=== PATIENT | male | born 1950 | race African-American/Black ===

== ENCOUNTER 2017-09-19 18:02 | Emergency (ER) | payer MEDICARE, OTHER ==
[~2017-09-19] VITALS: Ht 106.7 cm; Wt 63.6 kg
[~2017-09-19 18:02] MED LIST: CIPR-278 PO; HYD50 PO; HYDR25TA PO; LISI-661 PO; METH10OR11 PO
[2017-09-19 18:43] VITALS: BP 161/82
[2017-09-19] MEDS ORDERED: ZINC OXIDE 16% PASTE 57 GM TUBE TP ONE (19:15)
== END 2017-09-19 19:31 | disposition home or self-care (01) ==
LOC: EMS 18:09
DX: R21 Rash and other nonspecific skin eruption (principal); I10 Essential (primary) hypertension; Z88.8 Allergy status to other drugs, medicaments and biological substances; Z88.2 Allergy status to sulfonamides
CPT/HCPCS: 99283